=== PATIENT | female | born 1990 | race African-American/Black ===

== ENCOUNTER 2017-05-29 07:50 | Emergency (ER) | payer OTHER ==
[2017-05-29 08:17] LABS: APPEARANCE HAZY (CLEAR); BILIRUBIN NEGATIVE (NEGATIVE); COLOR YELLOW (YELLOW); GLUCOSE NEGATIVE (NEGATIVE); KETONE NEGATIVE (NEGATIVE); NITRITE NEGATIVE (NEGATIVE); PROTEIN NEGATIVE (NEGATIVE); UROBILINOGEN NORMAL (NORMAL)
[2017-05-29 08:18] LABS: RED CELLS - URINE 0-5 /hpf (0-5)
[2017-05-29 08:19] LABS: BACTERIA MANY /hpf (NONE SEEN); EPITHELIAL CELLS 0-5 /hpf (0-5); MUCUS >1+ /lpf (NONE SEEN)
[2017-05-29 08:21] LABS: HCG URINE NEGATIVE (NEGATIVE)
== END 2017-05-29 09:36 | disposition home or self-care (01) ==
LOC: D.ER 07:50
PROVIDERS: Emergency Medicine
DX: A64 Unspecified sexually transmitted disease (principal)

== ENCOUNTER 2017-09-04 08:10 | Emergency (ER) | payer OTHER | END 2017-09-04 09:25 | disposition home or self-care (01) | LOC: D.ER 08:10 | DX: M25.552 Pain in left hip (principal); M25.551 Pain in right hip ==

== ENCOUNTER 2018-02-28 20:07 | Emergency (ER) | payer OTHER ==
[~2018-02-28] VITALS: Ht 170.2 cm; Wt 81.8 kg
[2018-02-28 20:12] VITALS: Ht 170.2 cm; Wt 81.8 kg
[2018-02-28 21:12] LABS: HCG SERUM POSITIVE (NEGATIVE)
[2018-03-01 00:23] VITALS: BP 120/72
== END 2018-03-01 00:25 | disposition home or self-care (01) ==
LOC: D.ER 20:07
PROVIDERS: Emergency Medicine
DX: O20.0 Threatened abortion (principal); Z3A.00 Weeks of gestation of pregnancy not specified; N93.9 Abnormal uterine and vaginal bleeding, unspecified

== ENCOUNTER 2018-03-01 15:35 | Emergency (ER) | payer OTHER ==
[~2018-03-01] VITALS: Ht 170.2 cm; Wt 79.5 kg
[2018-03-01 15:48] VITALS: Ht 170.2 cm; Wt 79.5 kg
[2018-03-01 18:01] VITALS: BP 121/76
== END 2018-03-01 18:02 | disposition home or self-care (01) ==
LOC: D.ER 15:35
DX: Z00.00 Encounter for general adult medical examination without abnormal findings (principal)

== ENCOUNTER 2018-03-08 20:35 | Emergency (ER) | payer OTHER ==
[~2018-03-08] VITALS: Ht 170.2 cm; Wt 77.3 kg
[2018-03-08 20:41] VITALS: Ht 170.2 cm; Wt 77.3 kg
[2018-03-08 21:14] LABS: BASOPHILS 0.2 % (0-2); EOSINOPHILS 0.6 % (0-7); HEMATOCRIT 35.9 % (36.0-48.0); HEMOGLOBIN 11.9 g/dL (12-16); IMMATURE GRANULOCYTES 0.4 % (0-5); LYMPHOCYTES 23.1 % (15-50); MCH 30.4 pg (26.0-34.0); MCHC 33.1 g/dL (31.0-37.0); MCV 91.6 fL (80.0-100.0); MEAN PLATELET VOLUME 11.2 fL (7.4-10.4); MONOCYTES 6.6 % (2-11); NEUTROPHILS 69.1 % (40-80); PLATELET COUNT 208 10x3/uL (130-400); RBC 3.92 10x6/uL (4.00-5.40); RDW 15.8 % (11.5-14.5); WBC 14.2 10x3/uL (4.8-10.8)
[2018-03-08 21:22] LABS: HCG SERUM POSITIVE (NEGATIVE)
[2018-03-08 21:29] LABS: ALBUMIN 3.8 g/dL (3.4-5.0); ALKALINE PHOSPHATASE 65 U/L (46-116); ALT (SGPT) 16 U/L (10-68); BILIRUBIN - TOTAL 0.25 mg/dL (0.2-1.3); CALC OSMOLALITY 276 mosm/kg (275-300); CALCIUM 8.4 mg/dL (8.5-10.1); CARBON DIOXIDE 30.1 mmol/L (21.0-32.0); CHLORIDE - SERUM 104 mmol/L (98-107); CREATININE - SERUM 0.7 mg/dL (0.6-1.3); GLUCOSE 89 mg/dL (74-106); POTASSIUM - SERUM 3.2 mmol/L (3.5-5.1); PROTEIN - SERUM 7.4 g/dL (6.4-8.2); SODIUM 139 mmol/L (136-145); UREA NITROGEN 13 mg/dL (7-18); eGFR NON AFRICAN AMERICAN > 90 mL/min (90-120)
[2018-03-08 21:37] LABS: HCG - QUANTITATIVE (MATERNAL) 409 mIU/mL
[2018-03-08 21:42] LABS: APPEARANCE CLEAR (CLEAR); BILIRUBIN NEGATIVE (NEGATIVE); COLOR YELLOW (YELLOW); GLUCOSE NEGATIVE (NEGATIVE); KETONE NEGATIVE (NEGATIVE); NITRITE NEGATIVE (NEGATIVE); PROTEIN NEGATIVE (NEGATIVE); SPECIFIC GRAVITY 1.025 (1.005-1.020); UROBILINOGEN NORMAL (NORMAL)
[2018-03-08 21:46] LABS: BACTERIA MODERATE /hpf (NONE SEEN); MUCUS >1+ /lpf (NONE SEEN)
[2018-03-09 06:20] VITALS: BP 105/65
== END 2018-03-09 06:20 | disposition home or self-care (01) ==
LOC: D.ER 20:35
PROVIDERS: Family Medicine
DX: O00.90 Unspecified ectopic pregnancy without intrauterine pregnancy (principal)

== ENCOUNTER → 2018-03-16 13:30 | Outpatient (CLI) | payer OTHER ==
[2018-03-08 20:41] VITALS: BMI 26.7
[2018-03-16 14:14] LABS: BASOPHILS 0.1 % (0-2); EOSINOPHILS 0.6 % (0-7); HEMATOCRIT 36.5 % (36.0-48.0); HEMOGLOBIN 12.1 g/dL (12-16); IMMATURE GRANULOCYTES 0.3 % (0-5); LYMPHOCYTES 18.3 % (15-50); MCH 30.4 pg (26.0-34.0); MCHC 33.2 g/dL (31.0-37.0); MCV 91.7 fL (80.0-100.0); MEAN PLATELET VOLUME 11.1 fL (7.4-10.4); MONOCYTES 5.4 % (2-11); NEUTROPHILS 75.3 % (40-80); PLATELET COUNT 200 10x3/uL (130-400); RBC 3.98 10x6/uL (4.00-5.40); WBC 12.4 10x3/uL (4.8-10.8)
[2018-03-16 14:32] LABS: ALBUMIN 3.6 g/dL (3.4-5.0); ALKALINE PHOSPHATASE 67 U/L (46-116); ALT (SGPT) 13 U/L (10-68); BILIRUBIN - TOTAL 0.28 mg/dL (0.2-1.3); CALC OSMOLALITY 280 mosm/kg (275-300); CALCIUM 9.1 mg/dL (8.5-10.1); CARBON DIOXIDE 30.3 mmol/L (21.0-32.0); CHLORIDE - SERUM 106 mmol/L (98-107); CREATININE - SERUM 0.8 mg/dL (0.6-1.3); GLUCOSE 103 mg/dL (74-106); POTASSIUM - SERUM 4.4 mmol/L (3.5-5.1); PROTEIN - SERUM 7.5 g/dL (6.4-8.2); SODIUM 140 mmol/L (136-145); UREA NITROGEN 17 mg/dL (7-18); eGFR NON AFRICAN AMERICAN > 90 mL/min (90-120)
[2018-03-16 14:44] LABS: HCG - QUANTITATIVE (MATERNAL) 240 mIU/mL
== END | disposition home or self-care (01) ==
LOC: D.LAB 13:30
PROVIDERS: Obstetrics & Gynecology
DX: O00.90 Unspecified ectopic pregnancy without intrauterine pregnancy (principal)

== ENCOUNTER 2020-04-10 16:38 | Outpatient (CLI) | payer OTHER ==
[2018-03-08 20:41] VITALS: BMI 26.7
== END 2020-04-10 18:38 | disposition home or self-care (01) ==
LOC: D.LDO 16:38
PROVIDERS: ATTEND Obstetrics & Gynecology
DX: O26.892 Other specified pregnancy related conditions, second trimester (principal); Z3A.23 23 weeks gestation of pregnancy; R10.9 Unspecified abdominal pain